=== PATIENT | female | born 1990 | race Caucasian/White ===

== ENCOUNTER 2021-03-31 18:38 | Emergency (ER) | payer OTHER, SELFPAY ==
[~2021-03-31] VITALS: Ht 160 cm; Wt 81.3 kg
[2021-03-31 20:38] LABS: BASOPHILS % (AUTO) 1 % (0-1); EOSINOPHILS % (AUTO) 6 % (1-7); LYMPHOCYTES % (AUTO) 29 % (22-44); MEAN CORPUSCULAR HGB CONC 33.7 g/dL (32.4-35.8); MEAN PLATELET VOLUME 8.3 fL (7.4-10.4); MONOCYTES % (AUTO) 6 % (2-9); NEUTROPHILS % (AUTO) 58 % (42-75); PLATELET COUNT 440 x10^3/uL (130-400); RED BLOOD COUNT 4.71 x10^6/uL (3.82-5.3); RED CELL DISTRIBUTION WIDTH 13.9 % (9.6-15.2)
[2021-03-31 20:39] LABS: MD NO
[2021-03-31 20:48] LABS: ALBUMIN 3.9 g/dL (3.4-5.0); ANION GAP 5 mmol/L (5-15); CALCIUM 9.7 mg/dL (8.5-10.1); CHLORIDE 107 mmol/L (98-107); CREATININE 0.74 mg/dL (0.55-1.02)
[2021-03-31 20:52] LABS: TROPONIN I < 0.015 ng/mL (0.000-0.045)
[2021-03-31 21:39] VITALS: BP 122/78
== END 2021-03-31 21:41 | disposition home or self-care (01) ==
LOC: ED 21:35
DX: K21.00 Gastro-esophageal reflux disease with esophagitis, without bleeding (principal); R94.31 Abnormal electrocardiogram [ECG] [EKG]
CPT/HCPCS: 36415; 71045; 80048; 82040; 84484; 85025; 93005; 99285